=== PATIENT | male | born 1960 | race Caucasian/White ===

== ENCOUNTER 2021-03-07 12:45 | Emergency (ER) | payer BC ==
[2021-03-07 12:58] VITALS: BP 171/95; PULSE 67
[2021-03-07] MEDS ORDERED: Diphtheria,Pertussis(Acell),Tetanus Vaccine 0.5 ML Syringe IM ONE (13:08)
--- NOTE | 2021-03-07 13:08 | EDM.PDOC ---
ED HPI GENERAL MEDICAL PROBLEM - General Chief Complaint: Upper Extremity Injury/Pain Stated Complaint: RT ARM LAC/INJURY Time Seen by Provider: 03/07/21 12:54 Source of Information: Reports: Patient History Limitations: Reports: No Limitations - History of Present Illness INITIAL COMMENTS - FREE TEXT/NARRATIVE: 60-year-old male presents the emergency department today with complaints of a right forearm injury. Patient states that about 30 minutes prior to arrival he was working outside when a rope got caught around his right forearm and hooked into a pump of some sort and jerked his arm. Patient does have laceration noted to the right medial forearm due to the rope shear. Does admit to a history of hypertension. He denies smoking or alcohol. He states his primary care provider is Dr. Ledbetter. He states that his tetanus is not up-to-date. Right Arm Pain Score (Numeric/FACES): 7 - Related Data Allergies Allergy/AdvReac Type Severity Reaction Status Date / Time No Known Allergies Allergy Verified 03/07/21 12:58 Home Meds: Home Meds Polyethylene Glycol 3350 [MiraLAX] 17 gm PO DAILY #12 packet 04/14/16 [Rx] oxyCODONE HCl/Acetaminophen [Percocet 5-325 mg Tablet] 1 - 2 each PO Q4H PRN #36 tablet 04/14/16 [Rx] Past Medical History Cardiovascular History: Reports: Hypertension Dermatologic History: Reports: Eczema - Past Surgical History GI Surgical History: Reports: Hernia Repair/Other Musculoskeletal Surgical History: Reports: Shoulder Surgery Social & Family History - Tobacco Use Tobacco Use Status *Q: Never Tobacco User Second Hand Smoke Exposure: No - Recreational Drug Use Recreational Drug Use: No - Living Situation & Occupation Living situation: Reports: Occupation: Employed Review of Systems - Review of Systems Review Of Systems: Comprehensive ROS is negative, except as noted in HPI. ED EXAM, GENERAL - Physical Exam Exam: See Below Exam Limited By: No Limitations General Appearance: Alert, WD/WN, Mild Distress Ears: Normal External Exam, Hearing Grossly Normal Nose: Normal Inspection Throat/Mouth: Normal Inspection, Normal Lips, Normal Voice, No Airway Compromise Head: Atraumatic Neck: Normal Inspection, Supple Respiratory/Chest: No Respiratory Distress, No Accessory Muscle Use Cardiovascular: Normal Peripheral Pulses, Regular Rate, Rhythm Peripheral Pulses: 2+: Radial (L), Radial (R) GI/Abdominal: No Distention (Male) Exam: Deferred Rectal (Males) Exam: Deferred Back Exam: Normal Inspection Extremities: Normal Range of Motion, Normal Capillary Refill. No: Normal Inspection (Patient with approximate 4 cm gaping laceration to his right medial distal forearm.) Neurological: Alert, Oriented, Normal Cognition Psychiatric: Normal Affect, Normal Mood Skin Exam: Warm, Dry, Normal Color, No Rash, Wound/Incision (Patient with approximate 4 cm gaping laceration to his right medial distal forearm.). No: Intact Lymphatic: No Adenopathy ED TRAUMA EXTREMITY PROCEDURES - Laceration/Wound Repair Right Arm Lac/Wound Length In cm: 2.5 Appearance: Superficial, Subcutaneous, Irregular, Clean Distal NVT: Neuro & Vascular Intact, No Tendon Injury Anesthetic Type: Local Local Anesthesia - Lidocaine (Xylocaine): 1% Plain Local Anesthetic Volume: Other (9ml) Exploration/Debridement/Repair: Wound Explored Closed With: Sutures Suture Size: 4-0 # of Sutures: 6 Suture Type: Nylon, Interrupted Suture Size: 4-0 # of Sutures: 1 Repaired With: Vicryl Course - Vital Signs Text/Narrative:: As stated above 60-year-old male with a right forearm injury that occurred about 30 minutes prior to arrival. He states he was working outside when a rope somehow twisted around his arm and got caught in a pump and jerked him. Upon assessment CMS is positive distally. He is able to move all of his digits. And he does have full range of motion to his wrist. Bleeding is controlled at this time and radial pulses are present. We will obtain an x-ray of the right forearm. I have also ordered for him to receive his tetanus booster. Last Recorded V/S: Last Vital Signs Temp 97.6 F 03/07/21 12:51 Pulse 67 03/07/21 12:51 Resp 16 03/07/21 12:51 BP 171/95 H 03/07/21 12:51 Pulse Ox 96 03/07/21 12:51 - Orders/Labs/Meds Orders: Active Orders 24 hr Category Date Time Status Vaccines to be Administered [RC] PER UNIT ROUTINE Care 03/07/21 13:08 Active Forearm 2V Rt [CR] Stat Exams 03/07/21 13:02 Taken Meds: Medications Discontinued Medications Generic Name Dose Route Start Last Admin Trade Name Freq PRN Reason Stop Dose Admin Diphtheria/Tetanus/Acell Pertussis 0.5 ml 03/07/21 13:08 03/07/21 14:11 Diphtheria,Pertussis(Acell),Tetanus Vaccine 0.5 Ml Syringe IM 03/07/21 13:09 Not Given .ONCE ONE Lidocaine HCl 20 ml 03/07/21 13:24 03/07/21 14:11 Lidocaine 1% 20 Ml Mdv INJECT 03/07/21 13:25 Not Given ONETIME ONE Lidocaine HCl Confirm 03/07/21 13:42 03/07/21 14:11 Lidocaine 1% 10 Ml Mdv Administered 03/07/21 13:43 Not Given Dose 20 ml .ROUTE .STK-MED ONE Lidocaine HCl 20 ml 03/07/21 14:11 03/07/21 14:10 Lidocaine 1% 10 Ml Mdv INJECT 03/07/21 14:12 20 ml ONETIME ONE Administration - Re-Assessments/Exams Free Text/Narrative Re-Assessment/Exam: 03/07/21 13:30 Xrays were reviewed by myself and Dr. Arias. Nothing acute is appreciated. Formal radiologist report is pending. I have ordered 1% lidocaine to repair the laceration. 03/07/21 14:34 Wound was draped in sterile fashion and 1 subcutaneous suture was placed. 6 superficial sutures were placed. Wound is 2-1/2 cm in length. Area of abrasions surrounding the wound is 3 cm x 3 cm. Area of abrasion is weeping but bleeding is controlled. I have ordered for nursing staff to dress the wound. And patient will be discharged home. Departure - Departure Time of Disposition: 14:35 Disposition: Home, Self-Care 01 Condition: Good Clinical Impression: Laceration of forearm, right Qualifiers: Encounter type: initial encounter Qualified Code(s): S51.811A - Laceration without foreign body of right forearm, initial encounter - Discharge Information Instructions: Laceration Care, Adult, [id number] Referrals: Flash Ledbetter MD [Primary Care Provider] - Forms: ED Department Discharge Additional Instructions: You were seen in the emergency department with an injury and laceration to your right forearm. X-rays were completed and there is no fracture noted. Lacer ation was repaired with 1 internal suture. This will dissolve on its own. 6 external sutures were placed. These do need to be removed in 7 to 10 days. I would recommend you wait the full 10 days as it will allow more time to heal. Keep the dressing in place for 24 hours, then wash the wound twice daily with mild soap such as Dial or Fazal's baby shampoo. Pat the wound dry and then apply a thin film of bacitracin to the area. Be sure to keep the area covered with a dressing as you stated you do work outside. Sutures can be removed here in the emergency department or any of the walk-in clinics in [facility]. Watch for any signs or symptoms of infection such as increased warmth, redness, swelling or pus. May take Tylenol 650 mg every 4 hours as needed for the discomfort. Should your condition worsen or change, do not hesitate returning to the emergency department. Sepsis Event Note (ED) - Evaluation Sepsis Screening Result: No Definite Risk - Focused Exam Vital Signs: Vital Signs Temp Pulse Resp BP Pulse Ox 03/07/21 12:51 97.6 F 67 16 171/95 H 96 - My Orders Last 24 Hours: My Active Orders 03/07/21 13:02 Forearm 2V Rt [CR] Stat 03/07/21 13:08 Vaccines to be Administered [RC] PER UNIT ROUTINE - Assessment/Plan Last 24 Hours: My Active Orders 03/07/21 13:02 Forearm 2V Rt [CR] Stat 03/07/21 13:08 Vaccines to be Administered [RC] PER UNIT ROUTINE
[2021-03-07] MEDS ORDERED: Lidocaine 1% 20 ML MDV INJECT ONE (13:24)
[2021-03-07] MEDS ORDERED: Lidocaine 1% 10 ML MDV ONE (13:42)
[2021-03-07] MEDS ORDERED: Lidocaine 1% 10 ML MDV INJECT ONE (14:11)
--- NOTE | 2021-03-11 18:58 | CR ---
Right forearm: 2 views of the right forearm were obtained. Comparison: No previous study. Soft tissue injury and soft tissue swelling is noted. No acute fracture or other acute bony abnormality is appreciated. No radiopaque object is seen within the soft tissues. Impression: 1. Soft tissue injury with swelling. 2. No acute osseous abnormality is appreciated. Diagnostic code #3
== END 2021-03-07 14:48 | disposition home or self-care (01) ==
LOC: JD.ED 12:45
DX: S51.811A Laceration without foreign body of right forearm, initial encounter (principal); I10 Essential (primary) hypertension; Z79.899 Other long term (current) drug therapy; W23.1XXA Caught, crushed, jammed, or pinched between stationary objects, initial encounter
CPT/HCPCS: 12001; 73090-26-RT; 73090-RT; 99282; 99283-25

== ENCOUNTER 2021-03-17 10:24 | Emergency (ER) | payer BC | END 2021-03-17 10:40 | disposition home or self-care (01) | LOC: JD.ED 10:24 | DX: S51.811D Laceration without foreign body of right forearm, subsequent encounter (principal); W26.8XXD Contact with other sharp object(s), not elsewhere classified, subsequent encounter | CPT/HCPCS: 99281 ==